=== PATIENT | female | born 1995 | race African-American/Black ===

== ENCOUNTER 2018-09-11 08:58 | Emergency (ER) | payer OTHER ==
[2018-09-11 09:19] VITALS: PULSE 74; TEMP 98.6; BMI 28.2
[2018-09-11] MEDS ORDERED: morphine CARPU-JECT 4 MG/1 ML DISP.SYRIN IM ONE (09:35)
[2018-09-11] MEDS ORDERED: METOCLOPRAMIDE HCL INJECTION 10 MG/2 ML VIAL IVPB ONE (09:46)
--- NOTE | 2018-09-11 10:24 | PDOC ---
History of Present Illness <GeovannaRodney - Last Filed: 09/11/18 13:59> - General History Source: Patient Exam Limitations: Clinical Condition - History of Present Illness Initial Comments: 09/11/18 10:54 Patient with history of gastritis present with complaint of sudden onset of severe epigastric pain starting this morning with vomiting. Patient reports she has similar episode a month ago and was seen in emergency room and all workup was negative. Patient reported 10 out of 10 epigastric pain. Patient did not take anything for symptoms. Patient denies diarrhea, constipation, fever, chills. Denies any other symptoms Timing/Duration: 1-3 hours <Roverto Govea Vince - Last Filed: 09/11/18 14:13> - General Chief Complaint: Pain, Acute Stated Complaint: DIARRHEA Time Seen by Provider: 09/11/18 09:26 Past History <GeovannaRodney - Last Filed: 09/11/18 13:59> - Past Medical History COPD: No Dementia: No Dialysis: No - Surgical History Cholecystectomy: No Lung Surgery: No - Reproductive History Cervical CA: No Dysfunctional Uterine Bleeding: No Ectopic : No Endometrial CA: No Polycystic Ovaries: No Tubal Ligation: No - Immunization History Immunization Up to Date: Yes - Suicide/Smoking/Psychosocial Hx Smoking History: Current every day smoker Have you smoked in the past 12 months: Yes Number of Cigarettes Smoked Daily: 4 Information on smoking cessation initiated: No Hx Alcohol Use: No Drug/Substance Use Hx: No Substance Use Type: None <Roverto Govea - Last Filed: 09/11/18 14:13> - Past Medical History Allergies/Adverse Reactions: Allergies Allergy/AdvReac Type Severity Reaction Status Date / Time No Known Allergies Allergy Verified 01/18/15 06:46 Home Medications: Ambulatory Orders No Home Medications 0 dose .ROUTE UTDICT 07/09/13 Cefuroxime Axetil [Ceftin] 500 mg PO BID #20 tablet 01/18/15 Naproxen [Naprosyn] 500 mg PO BID PRN #20 tablet 01/18/15 Review of Systems - Review of Systems Able to Perform ROS?: Yes Is the patient limited French proficient: No Constitutional: No: Chills, Fever, Malaise HEENTM: No: Symptoms Reported Respiratory: No: Symptoms reported Cardiac (ROS): No: Symptoms Reported, See HPI, Chest Pain, Edema, Irregular Heart Rate, Lightheadedness, Palpitations, Syncope, Chest Tightness, Other ABD/GI: Yes: See HPI, Nausea, Vomiting, Abdominal cramping (epigastric). No: Abd. Pain w/ defecation, Blood Streaked Bowels, Constipated, Diarrhea, Difficulty Swallowing, Rectal Bleeding, Tarry Stools : No: Burning, Frequency, Hematuria, Incontinence, Urgency All Other Systems: Reviewed and Negative <Roverto Govea - Last Filed: 09/11/18 14:13> *Physical Exam - Vital Signs Last Vital Signs Temp Pulse Resp BP Pulse Ox 98.6 F 74 18 139/86 100 09/11/18 09:16 09/11/18 09:16 09/11/18 09:16 09/11/18 09:16 09/11/18 09:16 <Rodney Austin - Last Filed: 09/11/18 13:59> - Vital Signs Last Vital Signs Temp Pulse Resp BP Pulse Ox 98.6 F 74 18 139/86 100 09/11/18 09:16 09/11/18 09:16 09/11/18 09:16 09/11/18 09:16 09/11/18 09:16 - Physical Exam Comments: 09/11/18 10:56 GENERAL: Well developed, well nourished. Awake and alert in moderate acute distress. HEENT: Normocephalic, atraumatic. PERRLA, EOMI. No conjunctival pallor. Sclera are non-icteric. Moist mucous membranes. Oropharynx is clear. NECK: Supple. Full ROM. CARDIOVASCULAR: Regular rate and rhythm. No murmurs, rubs, or gallops. Distal pulses are 2+ and symmetric. PULMONARY: No evidence of respiratory distress. Lungs clear to auscultation bilaterally. No wheezing, rales or rhonchi. ABDOMINAL: moderate epigastric tenderness with guarding.Soft. Non-distended. No rebound . No organomegaly. Normoactive bowel sounds. MUSCULOSKELETAL Normal range of motion at all joints. EXTREMITIES: No cyanosis. No clubbing. No edema. SKIN: Warm and dry. Normal capillary refill. No rashes. No jaundice. NEUROLOGICAL: Alert, awake, appropriate. Gait is normal without ataxia. PSYCHIATRIC: Cooperative. Good eye contact. Appropriate mood General Appearance: Yes: Nourished, Appropriately Dressed, Moderate Distress <Roverto Govea - Last Filed: 09/11/18 14:13> Moderate Sedation - Procedure Monitoring Vital Signs: Procedure Monitoring Vital Signs Temperature 98.6 F 09/11/18 09:16 Pulse Rate 74 09/11/18 09:16 Respiratory Rate 18 09/11/18 09:16 Blood Pressure 139/86 09/11/18 09:16 O2 Sat by Pulse Oximetry (%) 100 09/11/18 09:16 <Rodney Austin - Last Filed: 09/11/18 13:59> - Procedure Monitoring Vital Signs: Procedure Monitoring Vital Signs Temperature 98.6 F 09/11/18 09:16 Pulse Rate 74 09/11/18 09:16 Respiratory Rate 18 09/11/18 09:16 Blood Pressure 139/86 09/11/18 09:16 O2 Sat by Pulse Oximetry (%) 100 09/11/18 09:16 <Roverto Govea - Last Filed: 09/11/18 14:13> ED Treatment Course - LABORATORY CBC & Chemistry Diagram: 09/11/18 10:30 09/11/18 10:30 - ADDITIONAL ORDERS Additional order review: Laboratory Results 09/11/18 09/11/18 13:41 10:30 Sodium 138 Potassium 4.7 Chloride 110 H Carbon Dioxide 20 L Anion Gap 8 BUN 11 Creatinine 0.8 Creat Clearance w eGFR > 60 Random Glucose 72 L Calcium 9.3 Total Bilirubin 0.2 AST 23 ALT 16 Alkaline Phosphatase 84 Total Protein 8.0 Albumin 3.9 Lipase 99 Beta HCG, Quant < 1.0 Urine Color Straw Urine Appearance Clear Urine pH 5.0 Ur Specific Tuttle > 1.060 H Urine Protein Negative Urine Glucose (UA) Negative Urine Ketones Negative Urine Blood Negative Urine Nitrite Negative Urine Bilirubin Negative Urine Urobilinogen Negative Ur Leukocyte Esterase Negative 09/11/18 10:30 RBC 4.13 MCV 99.1 H MCHC 34.2 RDW 15.3 MPV 10.0 Neutrophils % 83.7 H D Lymphocytes % 10.6 D Monocytes % 3.8 Eosinophils % 1.5 Basophils % 0.4 - RADIOLOGY Radiology Studies Ordered: Category Date Time Status ABDOMEN & PELVIS CT WITH CONTR [CT] Stat CT Scan 09/11/18 12:08 Completed - Medications Given in the ED: ED Medications Discontinued Medications Generic Name Dose Route Start Last Admin Trade Name Eduardo PRN Reason Stop Dose Admin Acetaminophen 1,000 mg 09/11/18 11:13 09/11/18 11:30 Ofirmev Injection - IVPB 09/11/18 11:14 1,000 mg ONCE ONE Administration Al Hydroxide/Mg Hydroxide 30 ml 09/11/18 13:01 09/11/18 13:18 Mylanta Suspension - PO 09/11/18 13:02 30 ml ONCE ONE Administration Diphenhydramine HCl 50 mg 09/11/18 09:45 09/11/18 10:56 Benadryl Injection - IVPB 09/11/18 09:46 50 mg ONCE ONE Administration Famotidine/Sodium Chloride 20 mg in 50 mls @ 100 mls/hr 09/11/18 12:56 13:18 Pepcid 20 Mg Premixed Ivpb - IVPB 09/11/18 13:25 100 mls/hr ONCE ONE Administration Metoclopramide HCl 10 mg 09/11/18 09:46 09/11/18 10:56 Reglan Injection - IVPB 09/11/18 09:47 10 mg ONCE ONE Administration Morphine Sulfate 4 mg 09/11/18 09:35 09/11/18 10:56 Morphine Injection - IM 09/11/18 09:36 4 mg ONCE ONE Administration <Rodney Austin - Last Filed: 09/11/18 13:59> - LABORATORY CBC & Chemistry Diagram: 09/11/18 10:30 09/11/18 10:30 <Roverto Govea - Last Filed: 09/11/18 14:13> Medical Decision Making - Medical Decision Making 09/11/18 13:59 Reevaluation: 2 PM no acute findings on patient's CAT scan patient feels somewhat better requesting one additional pain medication prior to discharge Given left-sided abdominal pain with mild diarrhea likely secondary to viral diarrheal illness If symptoms do not improve within 1 week I provided the patient with GI follow- up Findings, the need for follow-up and strict return instructions discussed with patient. <Rodney Austin - Last Filed: 09/11/18 13:59> - Medical Decision Making 09/11/18 10:57 Patient with no significant past medical history present with complaint of sudden onset of severe epigastric pain since this morning. Patient reported having similar episode a month ago with no findings. Patient cramping and pain with guarding to epigastric region. Morphine 4 mg IM given for pain and Benadryl 25 mg and Reglan 10 mg IV push given. IV hydration with normal saline ordered. CBC chemistry and urine test ordered. NOTE patient found on i-stop to have chronic Percocet medication which she received 90 tablets 10 days ago. Symptoms likely gastritis versus Pain medication seeking behavior versus colitis. CT of the abdomen to be ordered after labs. 09/11/18 14:12 no acute findings on abd CT except mild fatty liver infiltrate . Patient report feeling better now and requesting to eat. Patient stable for discharge with GI follow-up <Roverto Govea - Last Filed: 09/11/18 14:13> *DC/Admit/Observation/Transfer - Discharge Dispostion Decision to Admit order: No <Rodney Austin - Last Filed: 09/11/18 13:59> - Discharge Dispostion Decision to Admit order: No <Roverto Govea - Last Filed: 09/11/18 14:13> Diagnosis at time of Disposition: Abdominal pain Qualifiers: Abdominal location: left upper quadrant Qualified Code(s): R10.12 - Left upper quadrant pain - Discharge Dispostion Disposition: HOME Condition at time of disposition: Stable - Referrals Referrals: Stephan Calabrese MD [Primary Care Provider] - Geraldo Jc MD [Staff Physician] - - Patient Instructions Printed Discharge Instructions: Acute Abdominal Pain Additional Instructions: Take [id number] Pepcid and Maalox. Drink plenty of fluids. Continue your home pain medications as prescribed. Follow-up with Dr. Figueroa gastroenterology within 2-3 days. Return to the ED for any severe worsening symptoms or for any concerns.
[2018-09-11 11:02] LABS: BASO % 0.4 % (0-2.0); EOS % 1.5 % (0-4.5); HEMATOCRIT 40.9 % (32.4-45.2); LYMPH % 10.6 % (8-40); MCH 33.9 pg (25.7-33.7); MCHC 34.2 g/dl (32.0-36.0); MEAN CELL VOLUME 99.1 fl (80-96); MONO % 3.8 % (3.8-10.2); NEUT % 83.7 % (42.8-82.8); PLATELET COUNT 220 K/MM3 (134-434); RBC 4.13 M/mm3 (3.60-5.2); RDW 15.3 % (11.6-15.6); WHITE BLOOD COUNT 17.1 K/mm3 (4.0-10.0)
[2018-09-11] MEDS ORDERED: ACETAMINOPHEN 1000 MG/100 ML VIAL (NON FORMULARY) IVPB ONE (11:13)
[2018-09-11 11:47] LABS: ALBUMIN 3.9 g/dl (3.4-5.0); ALK PHOS 84 U/L (45-117); ANION GAP 8 MMOL/L (8-16); BILIRUBIN,TOTAL 0.2 mg/dL (0.2-1); BLOOD UREA NITROGEN 11 mg/dL (7-18); CALCIUM 9.3 mg/dL (8.5-10.1); CHLORIDE 110 mmol/L (98-107); CO2 20 mmol/L (21-32); CREATININE 0.8 mg/dL (0.55-1.3); GLUCOSE,RANDOM 72 mg/dL (74-106); LIPASE 99 U/L (73-393); POTASSIUM 4.7 mmol/L (3.5-5.1); SGOT/AST 23 U/L (15-37); SGPT/ALT 16 U/L (13-61); SODIUM 138 mmol/L (136-145)
[2018-09-11] MEDS ORDERED: FAMOTIDINE 20 MG/50 ML IVPB 20 MG/50 ML MG IVPB ONE ×2 (12:56→13:17)
[2018-09-11] MEDS ORDERED: MAG HYDROX/AL HYDROX/SIMETH -MYLANTA- ORAL SUSPENSION PO ONE (13:01)
[2018-09-11] MEDS ORDERED: MAG HYDROX/AL HYDROX/SIMETH 30 ML UNIT-DOSE CUP ONE (13:17)
[2018-09-11 13:51] LABS: URINE APPEARANCE CLEAR; URINE BILIRUBIN NEGATIVE (<2.0 mg/dL); URINE COLOR STRAW; URINE GLUCOSE (UA) NEGATIVE (NEGATIVE); URINE KETONE NEGATIVE (NEGATIVE); URINE LEUK ESTERASE NEGATIVE (NEGATIVE); URINE NITRITE NEGATIVE (NEGATIVE); URINE PROTEIN NEGATIVE (NEGATIVE); URINE UROBILINOGEN NEGATIVE mg/dL (0.2-1.0)
[2018-09-11] MEDS ORDERED: KETOROLAC TROMETHAMINE 30 MG/1 ML VIAL IVPUSH ONE (13:59)
[2018-09-11] MEDS ORDERED: KETOROLAC TROMETHAMINE 15 MG/ML VIAL ONE (14:23)
[2018-09-11 15:12] VITALS: BP 124/78
== END 2018-09-11 14:05 | disposition home or self-care (01) ==
LOC: JER 08:58
PROC: 3E023NZ Introduction of Analgesics, Hypnotics, Sedatives into Muscle, Percutaneous Approach (ICD-10-PCS; principal; 2018-09-11)
PROC: 3E033GC Introduction of Other Therapeutic Substance into Peripheral Vein, Percutaneous Approach (ICD-10-PCS; 2018-09-11)
PROC: 3E033GC Introduction of Other Therapeutic Substance into Peripheral Vein, Percutaneous Approach (ICD-10-PCS; 2018-09-11)
PROC: 3E033GC Introduction of Other Therapeutic Substance into Peripheral Vein, Percutaneous Approach (ICD-10-PCS; 2018-09-11)
PROC: 3E033NZ Introduction of Analgesics, Hypnotics, Sedatives into Peripheral Vein, Percutaneous Approach (ICD-10-PCS; 2018-09-11)
PROC: 3E0333Z Introduction of Anti-inflammatory into Peripheral Vein, Percutaneous Approach (ICD-10-PCS; 2018-09-11)
DX: R10.12 Left upper quadrant pain (principal)
CPT/HCPCS: 36415; 74177-TC; 80053; 81003; 83690; 84702; 85025; 96365; 96372; 96375; 99282-25; J0131